=== PATIENT | female | born 1990 | race Caucasian/White ===

== ENCOUNTER 2021-04-30 09:55 | Emergency (ER) | payer OTHER, SELFPAY ==
--- NOTE | ~2021-04-30 | US_ITS ---
EXAMINATION: US VENOUS ULTRASOUND WITH DOPPLER LOWER EXTREMITY, LEFT CLINICAL INFORMATION: Swelling and pain. COMPARISON: None TECHNIQUE: Ultrasound of the deep veins is performed from the hip to the calf with compression sonography and color and pulse Doppler assessment. Spectral analysis with color-flow imaging is performed. FINDINGS: There is normal venous compression and respiratory variation and augmented flow. The visualized common femoral vein, superficial femoral vein, profunda femoral vein, popliteal vein, and the trifurcation region shows no evidence of deep venous thrombosis. There is no significant popliteal fossa cyst. There is slow flow visualized in the popliteal vein. If the patient's symptoms persist, followup ultrasound in 5 days 7 days might be of value to exclude proximal propagation from a non-visualized calf vein. US/US venous duplex LE IMPRESSION: No DVT demonstrated in the left lower extremity.
[2021-04-30 10:11] VITALS: BP 134/85; PULSE 83; RESP 16; TEMP 36.2; O2SAT 98; BMI 27.9
--- NOTE | 2021-04-30 12:11 | ED_ITS ---
HPI - General Adult General Chief complaint: Extremity Problem Stated complaint: Needed Ultra Sound, sent from Urgent Care Time Seen by Provider: 04/30/21 10:06 Source: patient Mode of arrival: ambulatory History of Present Illness HPI narrative: 31-year-old female with no significant past medical history presenting to the ED complaining of left lower extremity pain and intermittent paresthesias x1 week worsening over the past 3 days. States pain initially started behind knee now radiates to calf & tib/fib. Denies swelling, weakness, history of blood clots, oral OCPs, cigarette smoking, recent travel Onset (ago): day(s) Related Data Allergies Allergy/AdvReac Type Severity Reaction Status Date / Time No Known Allergies Allergy Verified 04/30/21 10:42 Review of Systems Review of Systems: Constitutional: No Fever, No Chills ENT/Mouth: No Ear Pain, No Nasal Congestion,No Hoarseness, No sore throat, No Swallowing Difficulty Cardiovascular: No Chest Pain, No SOB Respiratory: No Cough, No Sputum Gastrointestinal: No Nausea, No Vomiting, No Abdominal pain Genitourinary:, No Dysuria, No Urgency, No Flank Pain Musculoskeletal: + joint pain, No Myalgias, No Joint Swelling Skin: No Skin Lesions, No rash Neuro: No Weakness, No Numbness, No Paresthesias Yes all other systems are reviewed and are negative Neurologic: Denies Sensory deficit (Neuro) [facility] Past Medical History Attestation statement: The following information was validated with the patient. Medical History No known health problems Social History Social History Advance Directives: No Advance Directives Information Provided: No Patient : No Physical Exam Vital Signs: Vital Signs: Last Vital Signs Temp 97.2 F 04/30/21 10:11 Pulse 83 04/30/21 10:11 Resp 16 04/30/21 10:11 BP 134/85 04/30/21 10:11 Pulse Ox 98 04/30/21 10:11 BMI result Body Mass Index 27.9 Const: General: cooperative, healthy appearing and no acute distress Orien tation/consciousness: patient oriented x3 Limitations: no limitations HENMT: Head: Yes normal to inspection Ears: hearing grossly normal bilaterally General nose exam: Normal external nose present Face and sinus: Yes normal facial exam Eyes: General: appearance normal, both eyes and all related structures EOM: EOMs intact bilaterally Neck: Neck: Yes normal visual inspection and Yes no meningeal signs Resp: Effort & Inspection: normal respiratory effort and no respiratory distress Cardio: Rate: regular rate Peripheral pulses: dorsalis pedis present Skin: Rashes: no rashes Wounds: no wounds Neuro: General: patient oriented x3 and no meningeal signs Gait exam (Neuro): Normal gait present Sensory Exam: No Sensory deficit (Neuro) Extrem: Other: Left lower extremity without noted swelling/edema. No calf tenderness. Mild tenderness to posterior knee. No appreciable deformity/erythema or ecchymosis. Neurovascular intact distally. Full range of motion intact General: Yes normal to inspection Course Course Course Narrative: US venous duplex LE LT IMPRESSION: No DVT demonstrated in the left lower extremity. >> results discussed with patient including worrisome signs and symptoms and strict return precautions and follow-up for repeat ultrasound in 5-7 days if symptoms persist Medical Decision Making MDM Narrative Medical decision making narrative: 31-year-old female with no significant past medical history presenting to the ED complaining of left lower extremity pain and intermittent paresthesias x1 week worsening over the past 3 days. States pain initially started behind knee now radiates to calf & tib/fib. Denies swelling, weakness, history of blood clots, oral OCPs, cigarette smoking, recent travel Medical Records Medical records reviewed: Yes I reviewed the patient's medical records. Lab Data Lab results reviewed: Yes I reviewed the patient's lab results. Discharge Plan Discharge Clinical Impression: Left leg pain Patient Disposition: Home, Self-Care Instructions: Leg Pain (ED) Additional Instructions: Your ultrasound was negative for any blood clot It is recommended you have a repeat ultrasound in 5-7 days if her symptoms persist Please follow-up with her doctor Take Tylenol and Motrin at home as needed Rest If you develop redness to her leg, swelling, shortness of breath patient return to the ED Referrals: Physician,Yasmin J [Primary Care Provider] - 5 days (as needed)
== END 2021-04-30 12:58 | disposition home or self-care (01) ==
PROVIDERS: Emergency Provider Emergency Medicine
DX: M79.605 Pain in left leg (principal)
CPT/HCPCS: 93971; 99283; 99284